=== PATIENT | male | born 1955 | race Caucasian/White ===

== ENCOUNTER 2020-08-29 17:12 | Emergency (ER) | payer MEDICARE ==
[2020-08-29] MEDS ORDERED: ACETAMINOPHEN 325 MG TABLET PO ONE (17:34)
--- NOTE | 2020-08-29 18:38 | RADIOLOGY REPORT (SQ) ---
EXAM DESCRIPTION: SHOULDER LEFT 2 OR MORE VIEWS IMAGES COMPLETED DATE/TIME: 08/29/2020 6:30 pm REASON FOR STUDY: fall, L shoulder pain COMPARISON: None. NUMBER OF VIEWS: Three views. TECHNIQUE: Internal rotation, external rotation, and Y view images acquired of the left shoulder. LIMITATIONS: None. FINDINGS: MINERALIZATION: Normal. BONES: No acute fracture. No worrisome bone lesions. JOINTS: No dislocation. VISUALIZED LUNGS AND RIBS: No pneumothorax. Old healed rib fractures. SOFT TISSUES: No radiopaque foreign body. OTHER: Pacemaker. IMPRESSION: NEGATIVE STUDY OF THE LEFT SHOULDER. NO RADIOGRAPHIC EVIDENCE OF ACUTE INJURY. TECHNICAL DOCUMENTATION: JOB ID: [id number] 2010 [employer]- All Rights Reserved Reading location - IP/workstation name: [email or web address]
--- NOTE | 2020-08-29 18:39 | RADIOLOGY REPORT (SQ) ---
EXAM DESCRIPTION: CHEST 2 VIEWS IMAGES COMPLETED DATE/TIME: 08/29/2020 6:30 pm REASON FOR STUDY: fall, L rib pain COMPARISON: None. EXAM PARAMETERS: NUMBER OF VIEWS: two views TECHNIQUE: Digital Frontal and Lateral radiographic views of the chest acquired. RADIATION DOSE: NA LIMITATIONS: none FINDINGS: LUNGS AND PLEURA: No opacities, masses or pneumothorax. No pleural effusion. MEDIASTINUM AND HILAR STRUCTURES: No masses or contour abnormalities. HEART AND VASCULAR STRUCTURES: Heart normal size. No evidence for failure. BONES: There are old healed left rib fractures. No acute fractures. HARDWARE: Pacemaker defibrillator. OTHER: No other significant finding. IMPRESSION: No acute fracture. No pneumothorax. TECHNICAL DOCUMENTATION: JOB ID: [id number] 2010 [employer]- All Rights Reserved Reading location - IP/workstation name: [email or web address]
[2020-08-29] MEDS ORDERED: HYDROCODONE/ACETAMINOPHEN 5-325 MG (6 TAB/ER DISP) PO PRN (18:53)
[2020-08-29] MEDS ORDERED: LIDOCAINE 5% (700 MG) TRANSDERMAL ADH..PATCH TP ONE (18:53)
--- NOTE | 2020-08-29 19:00 | ER Document Report ---
HPI - HPI Patient complains to provider of: Shoulder injury Time Seen by Provider: 08/29/20 17:25 Onset: Yesterday Onset/Duration: Persistent Quality of pain: Achy Pain Level: 4 Context: Patient states that he stepped to a loop of a hose and tripped falling landing on his left shoulder. Patient has had previous left shoulder repair in the past. Patient complains of increased left shoulder pain and bruising to the left lateral rib area. Patient denies any chest pain, cough or shortness of breath. Patient denies any head injury or loss of consciousness. Associated Symptoms: Other - Left shoulder pain Exacerbated by: Movement Relieved by: Denies Similar symptoms previously: Yes Recently seen / treated by doctor: No - ROS ROS below otherwise negative: Yes Systems Reviewed and Negative: Yes All other systems reviewed and negative - CONSTITUTIONAL Constitutional: DENIES: Fever, Chills - CARDIOVASCULAR Cardiovascular: DENIES: Chest pain - RESPIRATORY Respiratory: DENIES: Trouble Breathing, Coughing - MUSCULOSKELETAL Musculoskeletal: REPORTS: Extremity pain - lt shoulder. DENIES: Back Pain, Neck Pain - DERM Skin Color: Ecchymosis - Left lateral rib area Skin Problems: None Past Medical History - General Information source: Patient - Social History Smoking Status: Current Every Day Smoker Frequency of alcohol use: Social Drug Abuse: Marijuana Occupation: None Family History: Reviewed & Not Pertinent - Past Medical History Cardiac Medical History: Reports: Hx Coronary Artery Disease, Hx Hypertension Pulmonary Medical History: Reports: Hx COPD Past Surgical History: Reports: Hx Cardiac Surgery, Hx Cholecystectomy, Hx Orthopedic Surgery - R+L shoulder, Hx Tonsillectomy Vertical Provider Document - CONSTITUTIONAL Agree With Documented VS: Yes Exam Limitations: No Limitations General Appearance: WD/WN, No Apparent Distress - HEENT HEENT: Atraumatic, Normocephalic - NECK Neck: Normal Inspection, Supple - RESPIRATORY Respiratory: Breath Sounds Normal, No Respiratory Distress, Chest Non-Tender. negative: Rales, Rhonchi, Wheezing - CARDIOVASCULAR Cardiovascular: Regular Rate, Regular Rhythm Pulses: Normal: Radial - BACK Back: Abnormal Inspection - Mild ecchymosis to left lateral posterior rib area, no crepitus, no subcutaneous emphysema - MUSCULOSKELETAL/EXTREMETIES Musculoskeletal/Extremeties: MAEW, Tender - Tenderness over anterior aspect of left humeral head, no dislocation or deformity, patient with increased tenderness with abduction and extension - NEURO Level of Consciousness: Awake, Alert, Appropriate Motor/Sensory: No Motor Deficit, No Sensory Deficit - DERM Integumentary: Warm, Dry, No Rash Course - Re-evaluation Re-evalutation: 08/29/20 19:09 Patient without any shoulder fracture dislocation. No pneumothorax or rib fracture noted on x-ray of chest. Will immobilize and refer to orthopedics for further evaluation. Discussed worsening signs or symptoms that patient should return immediately for. Patient verbalized understanding and is agreeable discharge plan of care. - Vital Signs Vital signs: Temp Pulse Resp BP Pulse Ox 98.4 F 108 H 18 144/99 H 94 08/29/20 17:21 08/29/20 17:21 08/29/20 17:21 08/29/20 17:21 08/29/20 17:21 - Diagnostic Test Radiology reviewed: Image reviewed, Reports reviewed Procedures - Immobilization Left Shoulder Pre-Proc Neuro Vasc Exam: Normal Immobilizer type: Shoulder immobilizer Performed by: PCT Post-Proc Neuro Vasc Exam: Normal Alignment checked and good: Yes Discharge - Discharge Clinical Impression: Sprain of left shoulder Qualifiers: Encounter type: initial encounter Shoulder sprain type: unspecified sprain Qualified Code(s): S43.402A - Unspecified sprain of left shoulder joint, initial encounter Contusion of rib on left side Qualifiers: Encounter type: initial encounter Qualified Code(s): S20.212A - Contusion of left front wall of thorax, initial encounter Condition: Stable Disposition: HOME, SELF-CARE Instructions: Oral Narcotic Medication ([facility]), Rib Contusion ([facility]), Shoulder Injury ([facility]), Sling as Treatment ([facility]) Additional Instructions: Return immediately for any new or worsening symptoms Followup with your primary care provider, call tomorrow to make a followup appointment Follow-up with orthopedics for any persistent pain or problems Wear sling for the next 4 to 5 days and then remove. Perform gentle range of motion exercises daily to the area Use incentive spirometer as directed Referrals: [facility] ([place]) [Provider Group] - Follow up as needed [facility] - Follow up as needed
[2020-08-29 19:13] VITALS: BP 115/89
== END 2020-08-29 19:18 | disposition home or self-care (01) ==
LOC: ER 17:12
DX: S43.402A Unspecified sprain of left shoulder joint, initial encounter (principal); S20.212A Contusion of left front wall of thorax, initial encounter; W01.0XXA Fall on same level from slipping, tripping and stumbling without subsequent striking against object, initial encounter; F17.200 Nicotine dependence, unspecified, uncomplicated; I10 Essential (primary) hypertension; J44.9 Chronic obstructive pulmonary disease, unspecified; Z90.49 Acquired absence of other specified parts of digestive tract
CPT/HCPCS: 99284; 71046; 73030; A9270 ×3

== ENCOUNTER → 2020-10-24 | Outpatient (CLI) | payer MEDICARE ==
--- OUTSIDE RECORDS SUMMARY | 2020-10-24 07:05 | XMS REPORT ---
:1955 [facility] [address] [place] [address] Care Team Providers Name Role Phone Unavailable Unavailable Unavailable Allergies, Adverse Reactions, Alerts This patient has no known allergies or adverse reactions. Medications Ordered Filled Start Stop Current Ordering Indication Dosage Frequency Signature Comments Components Medication Medication Date Date Medication? Clinician (SIG) Name Name Anoro No Anoro Ellipta Ellipta 62.5 mcg-25 62.5 mcg/actuati mcg-25 on powder mcg/actuat for ion powder inhalation for inhalation captopril No captopril 25 mg 25 mg tablet tablet metoprolol No metoprolol succinate succinate ER 50 mg ER 50 mg tablet,exte tablet,ext nded ended release 24 release 24 hr hr spironolact No spironolac one 25 mg tone 25 mg tablet tablet tamsulosin No tamsulosin 0.4 mg 0.4 mg capsule capsule Problems Condition Condition Condition Status Onset Resolution Last Treatin g Comments Name Details Category Date Date Treatment Clinician Date Hypertensiv Hypertensiv Problem Active 2019-10 e disorder e Disorder 00:00: 00 Cardiomyopa Cardiomyopa Problem Active 2019-10 thy thy 00:00: 00 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 Assessments Condition Name Status Diagnosis Date Treating Clinici an Injury of tendon of the rotator cuff of Active 09:19:47 shoulder Encounters Start End Encounter Admission Attending Care Care Encounter Date/Time Date/Time Type Type Clinicians Facility Department ID 2020-10-02 2020-10-02 Adam Lopez [id number] 00:00:00 00:00:00 [facility] [id number] [facility] DO: [address] [facility] [address] , Ph. Social History Smoking Status Start Date Stop Date Former Smoker Vital Signs Vital Name Observation Time Observation Value Comments Height 2020-10-02 00:00:00 66 [in_i] BMI (Body Mass Index) 2020-10-02 00:00:00 31.6 kg/m2 Body Weight 2020-10-02 00:00:00 196 [lb_av] Hospital Discharge Instructions 1. Injury of tendon of the rotator cuff of shoulder Discussion Note: None recorded. Patient educational handouts: No information available.
--- NOTE | 2020-10-24 08:20 | RADIOLOGY REPORT (SQ) ---
EXAM DESCRIPTION: CT LT UPPER EXTREMITY WITHOUT IMAGES COMPLETED DATE/TIME: 10/24/2020 7:11 am REASON FOR STUDY: STRAIN OF MUSC/TEND THE ROTATOR CUFF OF LEFT SHOULDER, INIT COMPARISON: 08/29/2020 TECHNIQUE: Axial imaging performed through the leftshoulder with reformatted oblique coronal and obl ique sagittal imaging windowed for bone and soft tissues. LIMITATIONS: None. FINDINGS: BONES: Hill-Sachs compression deformity with irregularity the anterior, inferior glenoid suggests previous shoulder dislocation. No acute fracture. No suspicious lytic or blastic osseous l esions. ACROMIOCLAVICULAR JOINT: Moderate acromioclavicular arthropathy with capsular hypertrophy, subcortic al cystic changes, and marginal osteophytes. The coracoclavicular and acromioclavicular intervals ar e maintained. GLENOHUMERAL JOINT: Cranial subluxation of the humerus relative to the glenoid, consistent with surgical instrument maker randi rotator cuff tear. Marginal osteophytes are demonstrated. No articular subcortical cystic jasmine es. SOFT TISSUES: Atrophy of the supraspinatus, consistent with chronic full-thickness tear. Rotator cu ff muscle bulk and attenuation is otherwise largely symmetric and uniform. No soft tissue masses. N o axillary lymphadenopathy. Partially imaged transvenous cardiac pacer. HARDWARE: None in the shoulder. Incidental note is made of a partially imaged transvenous cardiac p acer. OTHER: The visualized lung parenchyma is clear noting left apical blebs. No significant findings. IMPRESSION: 1. Chronic tear of the supraspinatus as evidenced by muscular atrophy and cranial sublu xation of the humeral head. 2. Moderate acromioclavicular and glenohumeral arthropathy. TECHNICAL DOCUMENTATION: JOB ID: [id number] 2010 [employer]- All Rights Reserved Reading location - IP/workstation name: [email or web address]
== END ==
LOC: RAD 07:02
PROVIDERS: ATTEND Orthopaedic Surgery
DX: M75.102 Unspecified rotator cuff tear or rupture of left shoulder, not specified as traumatic (principal); M12.9 Arthropathy, unspecified